=== PATIENT | female | born 1985 | race Caucasian/White ===

== ENCOUNTER 2016-02-28 11:09 | Emergency (ER) | payer MEDICAID ==
[~2016-02-28] VITALS: Ht 157.5 cm; Wt 64.0 kg
[~2016-02-28 11:09] MED LIST: ACET325T33 PO; AMO500 PO; BACTDS PO; CEPH-443 PO; CIPR500T4 PO; ERYTOPOI BOTH EYES; HYDR-3498 PO; HYDR-3612 PO; IBUP-1542 PO; NITR-58 PO; ONDA4TAB35 PO; OXYC-283 PO
[2016-02-28 11:12] VITALS: Ht 157.5 cm; Wt 64.0 kg
[2016-02-28] MEDS ORDERED: ACETAMINOPHEN 500 MG TAB PO STA (13:12)
[2016-02-28 13:44] LABS: BASOPHILS % 0.3 % (0.0-2.0); EOSINOPHILS % 0.4 % (0.0-7.0); HEMATOCRIT 35.4 % (37.0-47.0); LYMPHOCYTES # 1.1 10^3/ul (0.8-2.9); LYMPHOCYTES % 8.4 % (15.0-51.0); MEAN CORPUSCULAR HEMOGLOBIN 27.1 pg (29.0-33.0); MEAN CORPUSCULAR VOLUME 79.9 fl (82.0-101.0); MEAN PLATELET VOLUME 7.9 fl (7.4-10.4); MONOCYTE # 0.9 10^3/ul (0.3-0.9); MONOCYTES % 6.7 % (0.0-11.0); NEUTROPHIL # 11.1 10^3/ul (1.6-7.5); NEUTROPHILS % 84.2 % (39.0-77.0); PLATELET COUNT 346 10^3/UL (140-440); RED BLOOD COUNT 4.43 10^6/ul (4.20-5.40); UNCORRECTED WBC 13.2 10^3/ul (4.8-10.8); WHITE BLOOD COUNT 13.2 10^3/ul (4.8-10.8)
[2016-02-28 13:49] LABS: CONDITION 1; LH ANALYZER COMMENTS 1
[2016-02-28 13:50] LABS: ALBUMIN 3.7 g/dl (3.3-4.9)
[2016-02-28 13:51] LABS: POTASSIUM 4.2 mmol/L (3.5-5.1)
[2016-02-28 13:53] LABS: ALBUMIN/GLOBULIN RATIO 1.08; BILIRUBIN,INDIRECT 0.3 mg/dl (0-1.1); BILIRUBIN,TOTAL 0.3 mg/dl (0.2-1.3); CREATININE 0.42 mg/dl (0.44-1.00); TOTAL PROTEIN 7.1 g/dl (6.1-8.1)
[2016-02-28 13:54] LABS: CALCIUM 8.8 mg/dl (8.4-10.2)
[2016-02-28 13:55] LABS: ADD UMIC YES; URINE BILIRUBIN (Dip) 1+ (NEGATIVE); URINE BLOOD (Dip) NEGATIVE (NEGATIVE); URINE COLOR YELLOW (YELLOW); URINE GLUCOSE (Dip) NEGATIVE (NEGATIVE); URINE KETONES (Dip) 3+ (NEGATIVE); URINE LEUKOCYTE ESTERASE (Dip) TRACE (NEGATIVE); URINE NITRITE (Dip) NEGATIVE (NEGATIVE); URINE TOTAL PROTEIN (Dip) TRACE (NEGATIVE); URINE UROBILINOGEN (Dip) 0.2 E.U./dL (0.1-1.0)
--- NOTE | 2016-02-28 13:59 | RADRPT ---
PROCEDURE: US Abdomen. CLINICAL INDICATION: abdominal pain TECHNIQUE: Multiple real-time images were acquired of the patient's right upper quadrant abdomen a nd retroperitoneum utilizing a high resolution transducer. COMPARISON: 08/10/2015 FINDINGS: The liver demonstrates normal echogenicity. The liver is normal in size and no focal solid lesions are seen. The liver measures 16.1 cm in length. The portal vein is patent with normal direction of f low. No intrahepatic biliary dilatation is seen. The gallbladder is partially contracted. Multiple calcified gallstones are identified within the ga llbladder. There is no pericholecystic fluid or gallbladder wall thickening. The common bile duct m easures 5 mm in maximal dimension. The visualized portions of the pancreas are unremarkable. The tail of the pancreas is not seen. No free fluid is identified. The right kidney is normal in size, and demonstrate normal echogenicity and cortical thickness. The right kidney measures 10.3 cm in long dimension. There is no evidence of hydronephrosis. There are no kidney stones. RPTAT: AA IMPRESSION: Partially contracted gallbladder with multiple calcified stones. No evidence of gallbladder wall th ickening or pericholecystic fluid. .Luis Padron MD, Date Time Electronically viewed and signed by .Luis Padron MD, on 02/28/2016 13:58 .S/
--- NOTE | 2016-02-28 14:05 | RADRPT ---
PROCEDURE: US OB. CLINICAL INDICATION: Size and dates , abdominal pain TECHNIQUE: Multiple sonographic images of the pelvis and gravid uterus were obtained. The images were reviewed on a PACS workstation. COMPARISON: No prior studies are available for comparison. FINDINGS: The cervix is closed with a length of 4.0 cm. There is a single viable intrauterine gestation. Cardiac activity is present with 171 beats per min inderjit. There is a variable presentation. The placenta is anterior. There is no evidence for an abruption or placenta previa. Measurements were made in order to determine age. The results are as follows: BPD =3.5 cm HC =12.1 cm AC =10.6 cm FL =1.7 cm Estimated gestational age of approximately 16 weeks and 1 day based on ultrasound measurements. Clinical age: 15 weeks and 4 days. The estimated date of delivery is 08/13/16, based on ultrasound measurements. The EFW = 138 g, 62%, based on LMP age. The ovaries were not visualized. RPTAT: AA IMPRESSION: Single viable intrauterine gestation of approximately 16 weeks and 1 day based on ultrasound measur ements. .Luis Padron MD, Date Time Electronically viewed and signed by .Luis Padron MD, on 02/28/2016 14:05 .S/
[2016-02-28 14:10] LABS: BACTERIA,URINE FEW; ICTOTEST NEGATIVE (NEGATIVE); MUCUS,URINE MODERATE; URINE RBCS 0-2 /HPF (0)
[2016-02-28] MEDS ORDERED: FAMO-18 PO (14:13)
[2016-02-28] MEDS ORDERED: CALC300T4 PO (14:14)
[2016-02-28] MEDS ORDERED: TYL500 PO (14:14)
--- NOTE | 2016-02-28 14:25 | ERD ---
ER Documentation Chief Complaint Date/Time DATE: 02/28/16 TIME: 14:20 Chief Complaint MID ABD PAIN RADIATING TO LT UPPER ABD , 16 WEEKS PREG HPI This is a 31-year-old female that presents to the ER with multiple complaints. Patient has been sick for the last 2 weeks with a cough and cold symptoms. Patient states that on Saturday she had a hot dog and shrimp she began to have epigastric pain that radiates to her left lower quadrant. Patient denies any nausea vomiting or diarrhea. Patient had associated body pain and chills. She denies any fever. Patient has a past medical history of gallstones, which were never taken out. Cough is dry and worse at night. Patient denies any vaginal bleeding, any pelvic pain or any vaginal discharge or leakage. A1. Patient did not get her flu shot this year. She denies urinary frequency or dysuria. ROS 12 point review of systems was done, all negative except per HPI. Medications Home Meds Active Scripts Acetaminophen* (Tylenol*) 500 Mg Tab, 500 MG PO Q4H Y for MILD PAIN LEVEL 1-3 for 3 Days, TAB Prov:CORRINA MAJOR 02/28/16 Calcium Carbonate* (Tums X-Str) 300 Mg Tab.chew, 300 MG PO q2 for 3 Days, TAB.CHEW Prov:CORRINA MAJOR 02/28/16 Famotidine* (Pepcid*) 20 Mg Tablet, 20 MG PO BID for 5 Days, TAB Prov:CORRINA MAJOR 02/28/16 Sulfamethoxazole-Trimethoprim* (Bactrim* DS) 800-160 Mg Tab, 1 TAB PO BID for 7 Days, TAB Prov:Kelly Cohen PA-C 12/22/15 Cephalexin* (Keflex*) 500 Mg Capsule, 500 MG PO QID for 7 Days, CAP Prov:Kelly Cohen PA-C 12/22/15 Erythromycin* (Erythromycin* Ophthalmic) 1 Applic Oint, 1 APPLIC BOTH EYES QID for 7 Days, EA Prov:Kelly Cohen PA-C 12/22/15 Acetaminophen* (Tylenol*) 325 Mg Tablet, 2 TAB PO Q8 Y for PAIN AND OR ELEVATED TEMP, #20 TAB Prov:TRACY ENGLE MD 08/19/15 Ibuprofen* (Motrin*) 600 Mg Tab, 600 MG PO Q8, #30 TAB Prov:TRACY ENGLE MD 08/19/15 Amoxicillin* (Amoxicillin*) 500 Mg Cap, 500 MG PO TID for 10 Days, CAP Prov:TRACY ENGLE MD 08/19/15 Ciprofloxacin Hcl* (Ciprofloxacin Hcl*) 500 Mg Tablet, 500 MG PO BID for 7 Days , TAB Prov:HERMILO MEZA OBSTETRICS NURSE PRACTITIONER 08/11/15 Ondansetron Hcl* (Zofran* ODT) 4 mg -ODT Tab.disper, 4 MG PO Q8 Y for NAUSEA AND OR VOMITING, #30 TAB Prov:HERMILO MEZA OBSTETRICS NURSE PRACTITIONER 08/11/15 Oxycodone Hcl-Acetaminophen* (Percocet*) 7.5-325 Mg Tablet, 1 TAB PO Q4H Y for SEVERE PAIN LEVEL 7-10, #20 TAB Prov:HERMILO MEZA NP 08/11/15 Nitrofurantoin Monohyd Macrocr* (Macrobid*) 100 Mg Capsr, 100 MG PO BID for 7 Days, CAP Prov:NELL ROSALES PA-C 06/18/15 Ondansetron Hcl* (Zofran* ODT) 4 mg -ODT Tab.disper, 4 MG PO Q6 Y for NAUSEA AND /OR VOMITING, #14 TAB Prov:NELL ROSALES PA-C 06/18/15 Hydrocodone Bit-Acetaminophen* ([place]*) 5-325 Mg Tab, 1 TAB PO Q6 Y for PAIN, # 20 TAB Prov:NELL ROSALES PA-C 06/18/15 Reported Medications Hydrocodone Bit-Acetaminophen* ([place]*) 1 Tab Tab, 1 TAB PO Q8NARC 08/25/12 Allergies Allergies: Coded Allergies: No Known Allergy (Verified , 05/11/13) PMhx/Soc History of Surgery: No Anesthesia Reaction: No Hx Neurological Disorder: No Hx Respiratory Disorders: No Hx Cardiac Disorders: No Hx Psychiatric Problems: No Hx Miscellaneous Medical Probl: Yes (Hyperemesis Gradivarum,Gallstones) Hx Alcohol Use: No Hx Substance Use: No Hx Tobacco Use: No Physical Exam Vitals Vital Signs Date Time Temp Pulse Resp B/P Pulse Ox O2 Delivery O2 Flow Rate FiO2 1/17/17 11:12 98.1 90 16 125/69 100 Physical Exam GENERAL: The patient is well developed and appropriate for usual state of health , in no apparent distress. HEENT: Atraumatic. Conjunctivae are pink. Pupils equal, round, and reactive to light. Extraocular muscles are grossly intact. Bilateral tympanic membranes are clear with no evidence of erythema, effusion or dulling of the light reflex. The oropharynx is clear with no erythema or exudates. CHEST: Clear to auscultation bilaterally. There are no rales, wheezes or rhonchi. HEART: Regular rate and rhythm. No murmurs, clicks, rubs or gallops. ABDOMEN: Soft, nontender and nondistended. Good bowel sounds. No rebound or guarding. No gross peritonitis. No gross organomegaly or masses. No Knutson sign or McBurney point tenderness. BACK: No midline or flank tenderness. EXTREMITIES:Grossly neurovascularly intact. NEURO: Alert and oriented. SKIN: The skin is warm and dry. Result Diagram: 02/28/16 1324 02/28/16 1324 Results 24 hrs Laboratory Tests Test 02/28/16 13:24 02/28/16 13:26 Alanine Aminotransferase (ALT/SGPT) 26IU/L Albumin 3.7g/dl Albumin/Globulin Ratio 1.08 Alkaline Phosphatase 107IU/L Anion Gap 17 Aspartate Amino Transf (AST/SGOT) 17IU/L Basophils # 0.010^3/ul Basophils % 0.3% Blood Morphology Comment Blood Urea Nitrogen 8mg/dl Calcium Level 8.8mg/dl Carbon Dioxide Level 25mmol/L Chloride Level 99mmol/L Creatinine 0.42mg/dl Direct Bilirubin 0.00mg/dl Eosinophils # 0.010^3/ul Eosinophils % 0.4% Globulin 3.40g/dl Glucose Level 85mg/dl Hematocrit 35.4% Hemoglobin 12.0g/dl Indirect Bilirubin 0.3mg/dl Lipase 54U/L Lymphocytes # 1.110^3/ul Lymphocytes % 8.4% Mean Corpuscular Hemoglobin 27.1pg Mean Corpuscular Hemoglobin Concent 34.0g/dl Mean Corpuscular Volume 79.9fl Mean Platelet Volume 7.9fl Monocytes # 0.910^3/ul Monocytes % 6.7% Neutrophils # 11.110^3/ul Neutrophils % 84.2% Nucleated Red Blood Cells # 0.010^3/ul Nucleated Red Blood Cells % 0.0/100WBC Platelet Count 95320^3/UL Potassium Level 4.2mmol/L Red Blood Count 4.4310^6/ul Red Cell Distribution Width 15.0% Sodium Level 137mmol/L Total Bilirubin 0.3mg/dl Total Protein 7.1g/dl White Blood Count 13.210^3/ul Urine Bacteria FEW Urine Bilirubin 1+ Urine Clarity CLEAR Urine Color YELLOW Urine Epithelial Cells FEW Urine Glucose NEGATIVE% Urine Hemoglobin NEGATIVE Urine Ictotest NEGATIVE Urine Ketones 3+ Urine Leukocyte Esterase TRACE Urine Microscopic RBC 0-2/HPF Urine Microscopic WBC 5-10/HPF Urine Mucus MODERATE Urine Nitrite NEGATIVE Urine Specific [place] >=1.030 Urine Total Protein TRACE Urine Urobilinogen 0.2 E.U./dL Urine pH 6.0 Current Medications Medications (Trade) Dose Ordered Sig/Carla Route PRN Reason Start Time Stop Time Status Last Admin Dose Admin Acetaminophen (Tylenol Tab) 1,000 mg ONCE STAT PO 02/28/16 13:12 02/28/16 13:14 DC 02/28/16 13:18 Procedures/MDM This is a 31-year-old female that presents to the ER with epigastric pain. Differential diagnosis includes but is not limited to GERD, gastritis, peptic ulcer disease, pancreatitis, cholecystitis, choledocholithiasis, biliary colic, cholangitis, Wflv-Tdux-Yixxzn, ACS/OR, Pnuemonia. At this time patient does have gallstones however there is no evidence of cholecystitis. Patient's lab work is noncontributory with no elevation in liver enzymes or lipase. Patient more than likely has acid reflux disease. Her pain started directly after eating a hot dog and shrimp which have a lot of fat. In regards to patient's cough and body aches this is likely viral in etiology. At this time I do not feel it is safe to perform a chest x-ray as patient is and her physical examination is benign I doubt pneumonia. He is afebrile and she is not hypoxic or in any respiratory distress. Patient will be sent home with famotidine, Tums, Tylenol for body pain. I discussed the possibility of cough medicine, however patient is not comfortable taking this medication. Patient did take ibuprofen, I extensively discussed the risks of taking ibuprofen and advised patient not to take ibuprofen as she is . I also did an ultrasound of the baby, patient appears to have a normal at this time. She also does not complain of any vaginal symptoms. Patient is to follow -up with her primary care doctor within 1-2 days return to ER sooner if symptoms worsen. My medical decision making was shared with the patient she understands and agrees with plan. Departure Diagnosis: Primary Impression: Epigastric pain Additional Impression: Upper respiratory infection Condition: Stable Patient Instructions: Preventing Common Respiratory Infections, Epigastric Pain (Uncertain Cause) Additional Instructions: Call your primary care doctor TOMORROW for an appointment during the next 1-2 days.See the doctor sooner or return here if your condition worsens before your appointment time. CORRINA MAJOR Feb 28, 2016 14:25
== END 2016-02-28 14:43 | disposition home or self-care (01) ==
LOC: FTE 11:09
DX: O26.891 Other specified pregnancy related conditions, first trimester (principal); R10.13 Epigastric pain; J06.9 Acute upper respiratory infection, unspecified; O99.511 Diseases of the respiratory system complicating pregnancy, first trimester; Z3A.16 16 weeks gestation of pregnancy
CPT/HCPCS: 76705; 76805; 80053; 81001; 83690; 85025; Z7610; 36415; 81003

== ENCOUNTER 2016-07-22 19:45 | Inpatient (IN) | payer MEDICAID ==
[~2016-07-22] VITALS: Ht 157.5 cm; Wt 72.4 kg
[~2016-07-22 19:45] MED LIST changes: +CALC300T4 PO; +FAMO-18 PO; +TYL500 PO
[2016-07-22 20:13] VITALS: Ht 157.5 cm; Wt 72.4 kg
[2016-07-22] MEDS ORDERED: CARBOPROST 250 MCG INJ IM PRN (20:30)
[2016-07-22] MEDS ORDERED: MISOPROSTOL 200 MCG TAB PR PRN (20:30)
[2016-07-22] MEDS ORDERED: OXYTOCIN 30 UNITS/LR 500 ML IV PRN (20:30)
[2016-07-22] MEDS ORDERED: LIDOCAINE 1% (MPF) 30 ML INJ INJ PRN (20:30)
[2016-07-22] MEDS ORDERED: LACTATED RINGER'S 1,000 ML IV PRN (20:30)
[2016-07-22] MEDS ORDERED: METHYLERGONOVINE 0.2 MG INJ IM PRN (20:30)
[2016-07-22] MEDS ORDERED: OXYTOCIN 30 UNITS/LR 500 ML IV SCH ×2 (20:30)
[2016-07-22] MEDS ORDERED: BUTORPHANOL 2 MG INJ IV PRN (20:30)
[2016-07-22] MEDS ORDERED: IBUPROFEN 600 MG TAB PO PRN (20:30)
[2016-07-22] MEDS ORDERED: ACETAMINOPHEN/CODEINE #3 TAB PO PRN (20:30)
[2016-07-22] MEDS: LACTATED RINGER'S 1,000 ML IV SCH (21:24)
[2016-07-22 22:01] LABS: ADD SCAN DIFF NO
[2016-07-22 22:02] LABS: BASOPHILS % 0.4 % (0.0-2.0); EOSINOPHILS # 0.1 10^3/ul (0.0-0.5); EOSINOPHILS % 2.1 % (0.0-7.0); HEMATOCRIT 28.4 % (37.0-47.0); HEMOGLOBIN 8.9 g/dl (12.0-16.0); LYMPHOCYTES # 1.4 10^3/ul (0.8-2.9); LYMPHOCYTES % 20.9 % (15.0-51.0); MEAN CORPUSCULAR HEMOGLOBIN 21.4 pg (29.0-33.0); MEAN CORPUSCULAR HGB CONC 31.3 g/dl (32.0-37.0); MEAN CORPUSCULAR VOLUME 68.4 fl (82.0-101.0); MEAN PLATELET VOLUME 10.9 fl (7.4-10.4); MONOCYTE # 0.5 10^3/ul (0.3-0.9); NEUTROPHIL # 4.6 10^3/ul (1.6-7.5); NEUTROPHILS % 67.9 % (39.0-77.0); PLATELET COUNT 324 10^3/UL (140-415); RED BLOOD COUNT 4.15 10^6/ul (4.20-5.40); RED CELL DISTRIBUTION WIDTH 15.7 % (11.5-14.5); WHITE BLOOD COUNT 6.7 10^3/ul (4.8-10.8)
--- NOTE | 2016-07-22 22:07 | RADRPT ---
PROCEDURE: US OB. CLINICAL INDICATION: Size and dates , pelvic pain TECHNIQUE: Multiple sonographic images of the pelvis and gravid uterus were obtained. The images were reviewed on a PACS workstation. COMPARISON: No prior studies are available for comparison. FINDINGS: There is a single viable intrauterine gestation. Cardiac activity is present with 119 beats per min [place]. There is a vertex presentation. The placenta is anterior. There is no evidence for an abruption or placenta previa. There is a normal amount of amniotic fluid with an JENA = 10.6 cm. Measurements were made in order to determine age. The results are as follows: BPD =9.0 cm HC =31.9 cm AC =33.9 cm FL =7.2 cm Estimated gestational age of approximately 36 weeks and 5 days based on ultrasound measurements. Clinical age: 37 weeks and 0 days. The estimated date of delivery is 08/14/2016, based on ultrasound measurements. The EFW = 3126 g, 60%, based on LMP age. RPTAT: AA IMPRESSION: Single viable intrauterine gestation of approximately 36 weeks and 5 days based on ultrasound measu rements. .Lius Padron MD, Date Time Electronically viewed and signed by .Luis Padron MD, on 07/22/2016 22:07 .S/
[2016-07-22 22:18] LABS: INR 0.88; PROTIME 11.9 Sec (12.2-14.2); PT RATIO 0.9
[2016-07-22 22:19] LABS: PARTIAL THROMBOPLASTIN TIME 28.8 Sec (25.0-35.0)
[2016-07-23] MEDS: LACTATED RINGER'S 1,000 ML IV SCH ×4 (05:29→18:02)
[2016-07-23] MEDS ORDERED: OXYTOCIN 30 UNITS/LR 500 ML IV SCH (08:00)
--- NOTE | 2016-07-23 13:26 | HP ---
Date/Time of Note Date/Time of Note DATE: 07/23/16 TIME: 13:22 OB - History Hx of Present Chief Complaint: induction of labor Estimated Due Date: Aug 12, 2016 : 6 Para: 4 Spontaneous : 1 Therapeutic : 0 Care: Good Care Ultrasounds: Normal mid trimester US Obstetrical Complications: Other (intrahepatic cholestasis of ) Medical Complications: None Past Family/Social History * Past Medical, Surgical, Family and Obstetric Histories reviewed from chart. GBS Status: Negative OB Admission Exam Physical Exam HEENT: WNL Heart: Rhythm Normal Lungs: Clear Abdomen: WNL Extremities: Normal Cervical Dilatation: 2cm Effacement: 50% Station: -1 Membranes: Intact Heart Rate: 130's Accelerations: Accelerations Present Decelerations: No Decelerations Varibility: Moderate Last 72 hours Lab Results CBC & BMP 07/22/16 21:00 OB Assessment/Plan Reason for admission: induction of labor Plan: Induction Induction Method: per Pitocin Protocol FRANKY ORTEGA MD Jul 23, 2016 13:26
[2016-07-23] MEDS ORDERED: EPHEDrine SULFATE 50 MG/5 ML SYG IV PRN (13:30)
[2016-07-23] MEDS ORDERED: FENTAnyl 2MCG/ML-ROPIV 0.2% 100 ML BAG EPI SCH (13:30)
[2016-07-23] MEDS ORDERED: ONDANSETRON 4 MG INJ IV PRN (13:30)
[2016-07-23] MEDS ORDERED: NALOXONE (0.4 MG/ML) INJ IV PRN (13:30)
--- NOTE | 2016-07-23 20:33 | LDN ---
Date/Time of Note Date/Time of Note DATE: 07/23/16 TIME: 20:31 Delivery Summary Weeks of Gestation 37 weeks and 1 day Placenta Delivered: Spontaneously Meconium: none Episiotomy: No Perineal laceration: 1 Laceration repair: Vaginal laceration repaired with 3-0 Vicryl. Anesthesia type: Epidural Estimated blood loss: 200 Sponge & Needle done & correct: Yes All needle counts correct: Yes Any foreign bodies felt in the: No Problems: Delivery Information Sex Infant Sex: male Apgars 1 Minute: 9 5 Minute: 9 Suctioning Nose & mouth suctioned at lane: Yes Delee suction performed: No Umbilical Cord Umbilical cord with: 3 Vessels Cord presentations: no nuchal cord Cord Blood was obtained: Yes Mother & Baby Disposition Disposition Mom & Baby to Maternity; Good: Yes FRANKY ORTEGA MD Jul 23, 2016 20:33
--- NOTE | 2016-07-23 21:28 | DELSUM ---
Delivery Summary A-C Datetime Report Generated by CPN: 07/23/2016 21:27 DELIVERY PERSONNEL [employer] Sewer: Kavitha, Emerald MATERNAL INFORMATION Delivery Anesthesia: Epidural Medications in Delivery: LR WITH 30 UNITS OF PITOCIN Estimated Blood Loss (ml): 200 Placenta Cultured: No Maternal Complications: Other Other Maternal Complications: CHOLESTASIS LABOR SUMMARY EDC: 08/12/2016 00:00 No. Babies in Womb: 1 Attempted: No Labor Anesthesia: Epidural LABOR INFORMATION Reason for Induction: Other Reason for Induction- Other: CHOLESTASIS Onset of Labor: 07/23/2016 08:00 Complete Dilatation: 07/23/2016 19:52 Oxytocin: Induction Group B Beta Strep: Negative Antibiotics # of Doses: X0 Steroids Given: None Reason Steroids Not Administered: Not Applicable MEMBRANES Membranes Rupture Method: Artificial Rupture of Membranes: 07/23/2016 18:10 Length of Rupture (hr): 1.95 Amniotic Fluid Color: Clear Amniotic Fluid Amount: Moderate Amniotic Fluid Odor: None STAGES OF LABOR Stage 1 hr: 11 Stage 1 min: 52 Stage 2 hr: 0 Stage 2 min: 15 Stage 3 hr: 0 Stage 3 min: 4 Total Time in Labor hr: 12 Total Time in Labor min: 11 VAGINAL DELIVERY Episiotomy: None Laceration Extension: N/A Laceration Type: Vaginal Laceration Repair: Yes Initial Vag Sponge Count: 10 Final Vag Sponge Count: 10 Initial Vag Sharps Count: 1 Final Vag Sharps Count: 2 Sponge Count Correct: Yes Sharps Count Correct: Yes BABY A INFORMATION Delivery Date/Time: 07/23/2016 20:07 Method of Delivery: Vaginal Born in Route : No : N/A Forceps: N/A Vacuum Extraction: N/A Shoulder Dystocia : No SHOULDER DYSTOCIA BABY A Delivery Date/Time: 07/23/2016 20:07 PRESENTATION/POSITION BABY A Presentation: Cephalic Cephalic Presentation: Vertex Vertex Position: Left Occipital Anterior Breech Presentation: N/A PLACENTA INFORMATION BABY A Placenta Delivery Time : 07/23/2016 20:11 Placenta Method of Delivery: Spontaneous Placenta Status: Delivered SCORES BABY A Heart Rate 1 min: >100 bpm Resp Effort 1 min: Good Cry Reflex Irritability 1 min: Cough/Sneeze/Pulls Away Muscle Tone 1 min: Active Motion Color 1 min: Body [place], Extremit Blue Resuscitation Effort 1 min: Tactile Stimulation SCORE 1 MIN: 9 Heart Rate 5 min: >100 bpm Resp Effort 5 min: Good Cry Reflex Irritability 5 min: Cough/Sneeze/Pulls Away Muscle Tone 5 min: Active Motion Color 5 min: Body [place], Extremit Blue Resuscitation Effort 5 min: Tactile Stimulation SCORE 5 MIN: 9 INFORMATION BABY A Gestational Age at Delivery: 37.1 Gestational Status: Early Term- 37- 38.6 Weeks Outcome : Liveborn Infant Condition : Stable Sex: Male IDENTIFICATION/MEDS BABY A ID Band Number: [id number] ID Band Location: Right Leg; Left Arm Sensor Applied: Yes Sensor Number: [id number] Sensor Location : Cord Clamp Vitamin K Given : Not Given Erythromycin Given: Not Given WEIGHT/LENGTH BABY A Birthweight (gm): 3215 Infant Weight (lb): 7 Infant Weight (oz): 1 Infant Length (in): 19.50 Length (cm): 49.53 CORD INFORMATION BABY A No. Cord Vessels: 3 Nuchal Cord : N/A Cord Blood Taken: Yes Suction: Mouth; Nose ASSESSMENT BABY A Infant Complications: Multiple Variable Decels Physical Findings at Delivery: Within Normal Limits Physical Findings- Other: VOIDED X1 Respirations: Appears Normal Outside Plant Engineer/ALS Called : No Care By: Christiano HINES RN Transferred To: Remains with Mother
[2016-07-23 21:35] VITALS: BP 123/61; PULSE 74; RESP 18
[2016-07-23] MEDS: LACTATED RINGER'S 1,000 ML IV* SCH (22:08)
[2016-07-23] MEDS ORDERED: OXYTOCIN 30 UNITS/LR 500 ML IV PRN (22:30)
[2016-07-23] MEDS ORDERED: WITCH HAZEL/GLYCERIN PAD PR PRN (22:30)
[2016-07-23] MEDS ORDERED: DIBUCAINE 1% 30 GM OINT PR PRN (22:30)
[2016-07-23] MEDS ORDERED: ACETAMINOPHEN/CODEINE #3 TAB PO PRN (22:30)
[2016-07-23] MEDS ORDERED: BENZOCAINE 20% 56 ML SPRAY TOP PRN (22:30)
[2016-07-23] MEDS ORDERED: ACETAMINOPHEN 325 MG TAB PO PRN (22:30)
[2016-07-23] MEDS ORDERED: CARBOPROST 250 MCG INJ IM PRN (22:30)
[2016-07-23] MEDS ORDERED: METHYLERGONOVINE 0.2 MG INJ IM PRN (22:30)
[2016-07-23] MEDS ORDERED: MISOPROSTOL 200 MCG TAB PR PRN (22:30)
[2016-07-24] MEDS: IBUPROFEN 600 MG TAB PO SCH ×5 (00:11→23:10)
[2016-07-24 03:30] VITALS: BP 115/63; PULSE 71; RESP 18
[2016-07-24] MEDS: LACTATED RINGER'S 1,000 ML IV* SCH ×3 (06:08→22:08)
[2016-07-24 07:45] LABS: ADD SCAN DIFF NO
[2016-07-24 07:59] LABS: BASOPHILS % 0.4 % (0.0-2.0); EOSINOPHILS # 0.1 10^3/ul (0.0-0.5); EOSINOPHILS % 1.5 % (0.0-7.0); HEMATOCRIT 27.4 % (37.0-47.0); HEMOGLOBIN 8.4 g/dl (12.0-16.0); LYMPHOCYTES # 1.5 10^3/ul (0.8-2.9); LYMPHOCYTES % 20.4 % (15.0-51.0); MEAN CORPUSCULAR HEMOGLOBIN 21.2 pg (29.0-33.0); MEAN CORPUSCULAR HGB CONC 30.7 g/dl (32.0-37.0); MEAN PLATELET VOLUME 10.7 fl (7.4-10.4); MONOCYTE # 0.7 10^3/ul (0.3-0.9); MONOCYTES % 9.8 % (0.0-11.0); NEUTROPHIL # 4.9 10^3/ul (1.6-7.5); NEUTROPHILS % 67.2 % (39.0-77.0); PLATELET COUNT 288 10^3/UL (140-415); RED BLOOD COUNT 3.97 10^6/ul (4.20-5.40); RED CELL DISTRIBUTION WIDTH 15.8 % (11.5-14.5); WHITE BLOOD COUNT 7.3 10^3/ul (4.8-10.8)
[2016-07-24 08:15] VITALS: BP 105/69; PULSE 80; RESP 18
[2016-07-24] MEDS: SENNA/DOCUSATE NA (8.6MG/50MG) TAB PO SCH ×2 (09:07→21:58)
[2016-07-24 12:15] VITALS: BP 102/61; PULSE 77; RESP 20
[2016-07-24 16:00] VITALS: BP 110/74; PULSE 20; RESP 20
[2016-07-24 20:00] VITALS: BP 119/66; PULSE 78; RESP 20
--- NOTE | 2016-07-24 20:50 | QN ---
Documentation Comment No complaint Afebrile VSS Fundus Firm Lochia scant PPD #1 Stable Continue present care. FRANKY ORTEGA MD Jul 24, 2016 20:50
[2016-07-25 04:04] VITALS: BP 118/65; RESP 20
[2016-07-25] MEDS: IBUPROFEN 600 MG TAB PO SCH ×2 (05:20→12:28)
[2016-07-25] MEDS: LACTATED RINGER'S 1,000 ML IV* SCH (06:08)
--- NOTE | 2016-07-25 08:13 | DS ---
Date/Time of Note Date/Time of Note DATE: 07/25/16 TIME: 08:13 Obstetrical Discharge Record Final Diagnosis Final Diagnosis: Term delivered Vaginal Delivery Obstetrical Delivery: Spontaneous Complications Augmentation: Yes Condition on Discharge Physical Assessment Voiding: Yes Bowel Movement: Yes Breast: Soft, non-tender Fundus: Firm Calf Tenderness: No Patient Condition: Stable FRANKY ORTEGA MD Jul 25, 2016 08:13
[2016-07-25 08:15] VITALS: BP 116/85; PULSE 67; RESP 18
[2016-07-25] MEDS ORDERED: DIPHTH/TET/ACEL PERTUSS (ADULT) 0.5 ML VIAL IM* ONE (09:00)
[2016-07-25] MEDS: SENNA/DOCUSATE NA (8.6MG/50MG) TAB PO SCH (09:12)
== END 2016-07-25 14:25 | disposition home or self-care (01) | DRG 775 ==
LOC: L-D 19:45 → PP1 07-23 21:35
PROVIDERS: ADMIT Obstetrics & Gynecology; ATTEND Obstetrics & Gynecology
PROC: 3E033VJ Introduction of Other Hormone into Peripheral Vein, Percutaneous Approach (ICD-10-PCS; 2016-07-22)
PROC: 10E0XZZ Delivery of Products of Conception, External Approach (ICD-10-PCS; principal; 2016-07-23)
PROC: 0UQGXZZ Repair Vagina, External Approach (ICD-10-PCS; 2016-07-23)
DX: O71.4 Obstetric high vaginal laceration alone (principal); Z37.0 Single live birth; Z3A.37 37 weeks gestation of pregnancy
CPT/HCPCS: 62319; 76815; 85025; 85610; 85730; 86592; 86900; 86901; 87340; 90715; J2590; J3010; J7120

== ENCOUNTER 2017-01-15 08:19 | Day surgery (SDC) | payer MEDICAID ==
[~2017-01-15] VITALS: Ht 157.5 cm; Wt 71.6 kg
[2017-01-15] VITALS (12 sets, daily range): BP systolic 107–123; BP diastolic 62–74; PULSE 66–90; RESP 15–25; Ht 157.5 cm; Wt 71.6 kg
[~2017-01-15 08:19] MED LIST changes: -ACET325T33 PO; -AMO500 PO; +ATROPINE 1 MG/10 ML SYRINGE IV PRN; -BACTDS PO; +BUPIVACAINE 0.5%/EPI (SDV) 30 ML INJ INJ ONE; +CEFAZOLIN 1 GM INJ ONE; -CEPH-443 PO; -CIPR500T4 PO; +DIPHENHYDRAMINE 50 MG INJ IV PRN; +EPHEDrine SULFATE 50 MG/5 ML SYG IV PRN; -ERYTOPOI BOTH EYES; -FAMO-18 PO; +FENTAnyl 50 MCG/ML VIAL IV PRN; -HYDR-3498 PO; -HYDR-3612 PO; +HYDROmorphONE (0.2 MG/ML) 10ML SYG IV PRN; -IBUP-1542 PO; +LABETALOL HCL 20MG INJ IV PRN; +MEPERIDINE 25 MG INJ IV PRN; +MIDAZOLAM 1 MG/ML 2 ML INJ IV PRN; -NITR-58 PO; -ONDA4TAB35 PO; +ONDANSETRON 4 MG INJ IV PRN; -OXYC-283 PO; +OXYCODONE/ACETAMINOPHEN (5/325) TAB PO PRN; -TYL500 PO; +hydrALAzine 20 MG INJ IV PRN; +morphine (1 MG/ML) 10ML SYRINGE IV PRN
[2017-01-15 09:29] LABS: BASOPHIL # 0.1 10^3/ul (0.0-0.1); BASOPHILS % 0.8 % (0.0-2.0); EOSINOPHILS # 0.2 10^3/ul (0.0-0.5); EOSINOPHILS % 2.6 % (0.0-7.0); HEMATOCRIT 41.1 % (37.0-47.0); HEMOGLOBIN 13.8 g/dl (12.0-16.0); LYMPHOCYTES # 1.6 10^3/ul (0.8-2.9); LYMPHOCYTES % 23.8 % (15.0-51.0); MEAN CORPUSCULAR HEMOGLOBIN 27.3 pg (29.0-33.0); MEAN CORPUSCULAR HGB CONC 33.6 g/dl (32.0-37.0); MEAN CORPUSCULAR VOLUME 81.2 fl (82.0-101.0); MEAN PLATELET VOLUME 10.1 fl (7.4-10.4); MONOCYTE # 0.6 10^3/ul (0.3-0.9); MONOCYTES % 8.5 % (0.0-11.0); NEUTROPHIL # 4.2 10^3/ul (1.6-7.5); PLATELET COUNT 290 10^3/UL (140-415); RED BLOOD COUNT 5.06 10^6/ul (4.20-5.40); RED CELL DISTRIBUTION WIDTH 14.9 % (11.5-14.5); WHITE BLOOD COUNT 6.6 10^3/ul (4.8-10.8)
[2017-01-15] MEDS ORDERED: BUPIVACAINE 0.5%/EPI (SDV) 30 ML INJ ONE (09:40)
[2017-01-15] MEDS ORDERED: FENTAnyl 50 MCG/ML VIAL ONE (10:41)
[2017-01-15] MEDS ORDERED: ROCURONIUM 50 MG INJ ONE (10:41)
[2017-01-15] MEDS ORDERED: PROPOFOL 20 ML ONE (10:41)
[2017-01-15] MEDS ORDERED: GLYCOPYRROLATE 0.4 MG INJ ONE (10:41)
[2017-01-15] MEDS ORDERED: LIDOCAINE 2% (SDV) 5 ML INJ ONE (10:41)
[2017-01-15] MEDS ORDERED: NEOSTIGMINE 3 MG/3 ML SYRINGE ONE (10:41)
[2017-01-15] MEDS ORDERED: DEXAMETHASONE 4 MG/ML 1 ML INJ ONE (10:42)
[2017-01-15] MEDS ORDERED: ONDANSETRON 4 MG INJ ONE (10:42)
[2017-01-15] MEDS ORDERED: MIDAZOLAM 1 MG/ML 2 ML INJ ONE (10:42)
[2017-01-15] MEDS ORDERED: SUCCINYLCHOLINE CHLORIDE 100 MG/5 ML SYG IV ONE (10:43)
[2017-01-15] MEDS ORDERED: KETOROLAC 30 MG INJ ONE (11:29)
--- NOTE | 2017-01-15 12:16 | SIPON ---
Date/Time of Note Date/Time of Note DATE: 01/15/17 TIME: 12:14 Operative Report Preoperative Diagnosis Voluntary sterilization Postoperative Diagnosis Same Operation/Procedure Performed Minilaparotomy BTL Surgeon Franky Ortega MD lead dental assistant ct technologist Anesthesia: general Estimated blood loss: minimal Transfusion Required none Specimen right and left Fallopian tube Grafts/Implants none Complications none FRANKY ORTEGA MD Jan 15, 2017 12:16
[2017-01-15] MEDS ORDERED: HYDROmorphONE (0.2 MG/ML) 10ML SYG IV ONE (12:27)
[2017-01-15] MEDS ORDERED: HYDROCODONE/APAP (5/325) TAB PO PRN (12:30)
[2017-01-15] MEDS ORDERED: morphine 2 MG INJ IV PRN (12:30)
[2017-01-15] MEDS ORDERED: KETOROLAC 30 MG INJ IV PRN (12:30)
[2017-01-15] MEDS ORDERED: ONDANSETRON 4 MG INJ IV PRN (12:30)
--- NOTE | 2017-01-15 12:44 | PREOPHP ---
DATE OF ADMISSION: 01/15/2017 HISTORY OF PRESENT ILLNESS: A 32-year-old female 6, para 4, AB2 admitted for voluntary ster ilization. PAST MEDICAL HISTORY: Unremarkable. PAST SURGICAL HISTORY: Unremarkable. ALLERGIES: NO KNOWN ALLERGIES. FAMILY HISTORY: Noncontributory. PHYSICAL EXAMINATION: VITAL SIGNS: Patient is afebrile. Vital signs stable. HEAD, NECK AND CHEST: Within normal limits. ABDOMEN: Soft, nontender, nondistended. PELVIC: Normal. EXTREMITIES: Within normal limits. NEUROLOGIC: Within normal limits. IMPRESSION: Voluntary sterilization. PLAN: Minilaparotomy, bilateral tubal ligation. Risks, benefits and alternatives of the procedure were explained to the patient. The patient has been counseled about all of her contraceptive option s including all methods of sterilization. It was explained to patient that with bilateral tubal lig ation there is a chance of failure resulting in ectopic and/or intrauterine . Af ter counseling, the patient said she understood and gave informed consent for the procedure. Dictated By: FRANKY FAJARDO/ROSHNI Conf#: [id number] DID#: [id number]
--- NOTE | 2017-01-15 12:55 | OPR ---
DATE OF OPERATION: 01/15/2017 PREOPERATIVE DIAGNOSIS: Voluntary sterilization. POSTOPERATIVE DIAGNOSIS: Voluntary sterilization. OPERATION PERFORMED: Minilaparotomy, bilateral tubal ligation. SURGEON: Franky Omalley MD. AUDIT CLERK: technical aid. ANESTHESIA: General. ANESTHESIOLOGIST: . PROCEDURE: The patient was taken to operating room, placed on the operating table in supine positio n. After adequate general anesthesia was given, the area was prepared and draped in the usual steri le fashion. Using a scalpel, Pfannenstiel incision was made about 2 fingerbreadths above the symphysis pubis. T he incision was carried to the fascia. The fascia was incised and extended bilaterally with Bovie. Two Madyson's were used to separate the fascia from the muscle. The muscle was dissected in midline down to peritoneum. The peritoneum was secured with 2 Kellys and incised with Metzenbaum scissors. Upon entering the peritoneal cavity, the right fallopian tube was grasped with a Vaughn clamp and followed to its fimbrial end to confirm its identity. Using 0 plain suture ligature, a 5 cm segmen t of the right fallopian tube was doubly ligated. Using Metzenbaum scissors, a portion of the right fallopian tube above the ligated area was excised and sent to pathology. Same procedure was repeat ed on the left fallopian tube. After assuring hemostasis, the peritoneum was reapproximated with 2- 0 chromic. The fascia was closed with 0 Vicryl continuous. Subcutaneous tissue was reapproximated with 0 chromic. Skin was closed with crystal. ESTIMATED BLOOD LOSS: Minimal. COUNTS: All counts were correct. Dictated By: FRANKY FAJARDO/ROSHNI Conf#: [id number] DID#: [id number]
== END 2017-01-15 13:50 | disposition home or self-care (01) ==
LOC: SDS 08:19
PROVIDERS: ATTEND Obstetrics & Gynecology
DX: Z30.2 Encounter for sterilization (principal)
CPT/HCPCS: 58600; 84703; 85025; 86850; 86900; 86901; 88302; J0690; J1100; J1170; J1885; J2175; J2250; J2405; J2710; J3010; Z7512; Z7610

== ENCOUNTER 2017-01-24 10:37 | Emergency (ER) | payer MEDICAID ==
[~2017-01-24] VITALS: Ht 157.5 cm; Wt 70.8 kg
[2017-01-24 10:43] VITALS: Ht 157.5 cm; Wt 70.8 kg
--- NOTE | 2017-01-24 12:05 | ERD ---
ER Documentation Chief Complaint Chief Complaint TUBELIGATION PREMA SATURDAY NEEDS CRYSTAL REMOVED HPI 32-year-old female had a tubal ligation and minilaparotomy with Dr. Omalley on January 15, 2017, comes in for staple removal. Patient states that she has been doing fine, reports minimal pain or irritation. The patient went to the clinic today for the staple removal but she states "I was not prepared to pay" and ended up canceling the appointment and presents here. She denies fevers chills, abdominal pain. ROS All systems reviewed and are negative except as per history of present illness. Medications Home Meds No Active Prescriptions or Reported Meds Allergies Allergies: Coded Allergies: No Known Allergy (Verified , 01/15/17) PMhx/Soc History of Surgery: Yes Anesthesia Reaction: No Hx Neurological Disorder: No Hx Respiratory Disorders: No Hx Cardiac Disorders: No Hx Psychiatric Problems: No Hx Miscellaneous Medical Probl: No Hx Alcohol Use: Yes (SOCIALLY) Hx Substance Use: No Hx Tobacco Use: No Smoking Status: Never smoker Physical Exam Vitals Vital Signs Date Time Temp Pulse Resp B/P Pulse Ox O2 Delivery O2 Flow Rate FiO2 01/24/17 10:43 98.0 76 18 118/74 97 Physical Exam General: Well-developed, well-nourished. The patient appears in no acute distress. HEENT: Head is normocephalic, atraumatic. No scleral icterus. Neck: Supple. Nontender. Lungs: Clear to auscultation. Normal air movement. Heart: Regular rate and rhythm. S1 and S2 are normal. No murmurs, gallops, or rubs. Abdomen: Soft, nontender, nondistended. Bowel sounds are normoactive. Incision in the lower abdomen is clean dry and intact. 9 crystal intact. No dehiscence, erythema or drainage. Extremities: No clubbing or cyanosis. Normal pulses. Moving extremities x 4. No weakness. Neurologic: Alert and oriented 3. No focal deficits. Skin: Normal turgor. No rash or lesions. Procedures/MDM ED COURSE: I spoke with the office, Dr Omalley approved staple removal. Staple Removal by me: Hobbs removed with staple remover without incident. MEDICAL DECISION MAKING: Wound shows no evidence of infection, foreign body, neurologic injury, vascular injury, open joint or tendon laceration. Patient to follow up PRN. Departure Diagnosis: Primary Impression: Removal of staple Condition: Good Patient Instructions: Staple Removal, No Complication GAURI OREILLY PA-C Jan 24, 2017 12:05
== END 2017-01-24 12:55 | disposition home or self-care (01) ==
LOC: FTE 10:37
DX: Z48.02 Encounter for removal of sutures (principal)
CPT/HCPCS: 99281